=== PATIENT | male | born 1960 | race African-American/Black ===

== ENCOUNTER 2016-08-02 13:30 | Emergency (ER) | payer OTHER ==
[~2016-08-02] VITALS: Ht 180.3 cm; Wt 94.1 kg
[~2016-08-02 13:30] MED LIST: AZIT250T4 PO; LORA10CA PO; PROM5SYR PO; [UNRECOGNIZED DRUG - CODE] PO
[2016-08-02 13:44] VITALS: BP 129/90; PULSE 90; RESP 16; O2SAT 98
--- NOTE | 2016-08-02 14:44 | ED.REPORT ---
HPI-URI / Cough / Cold Date of Service Aug 02, 2016 ED Provider: Jamie Fonseca PA-C 56-year-old male presents with chief complaint of allergies. He complains of runny nose, postnasal drip, itchy, watery eyes, ear pressure, dry cough. Denies fever, chills, malaise, myalgia, abdominal pain, vomiting. He typically treats this with Phenergan/Phenyleferiun and "an Inhaler." He would like a refill of his medications. He does not have a primary care provider. Nursing Notes Stated Complaint: SOB/COUGH Chief Complaint: Respiratory Complaints Nursing Notes Reviewed: Yes Allergies: Coded Allergies: hydrocodone (Verified Allergy, Intermediate, itching and hives, 08/02/16) tramadol (Verified Allergy, Mild, UNKNOWN AT THIS TIME, 08/02/16) Scheduled Loratadine (Claritin) 10 Mg Capsule 10 MG PO DAILY Phenylephrine/Promethazine Syrup (Promethazine Vc Syrup) 118 Ml Syrup 5 ML PO TID Promethazine/Phenylephrine Syr (Promethazine/Phenylephrine Syr) 118 Ml Syrup 5 ML PO QID General Time Seen by MD: 14:24 Chief Complaint Other (allergies) Past Medical History Past Medical History Denies medical problems Past Surgical History jaw fracture at 27 years old , repaired at [facility] in [place] Smoking History Former Smoker, Unknown if Ever Smoker Social History Alcohol Use: Denies alcohol use Drug Use: Denies drug use Occupation lives with a friend in [place], no work or school at this time 02/08/2016 Ambulatory Status Independent Review of Systems Review of Systems Note: Negative unless stated otherwise in history of present illness Physical Exam General: Well appearing, well developed, well nourished, no acute distress. Head: Atraumatic, normocephalic. No mastoid tenderness. Eyes: No scleral icterus or injection. Slight eyelid edema. Mild clear discharge. PERRL. Vision grossly intact. Ears: Pinna and tragus nontender with manipulation. External auditory canal patent, atraumatic and without discharge. Tympanic membrane coker, shiny and translucent without fluid, bulging, retraction or perforation. Hearing grossly intact. Nose: Symmetrical, nares patent without discharge. No frontal or maxillary sinus tenderness. Mouth/pharynx: normal dentition, mucus membranes moist. Tonsils 2+ and symmetrical, uvula midline. Pharynx mildly injected, no cobblestoning or discharge. Voice clear. Neck: No tenderness or lymphadenopathy. Trachea midline. Respiratory: Regular rate and rhythm. Breath sounds present, clear to auscultation and equal bilaterally. No respiratory distress. No increased work of breathing, speaks in complete sentences. Cardiovascular: Regular rate and rhythm, without murmur, gallop or rub. No pedal edema. Skin: Warm and dry. Neurological: Grossly nonfocal. Psychological: Alert and oriented. Speech appropriate, linear and logical. Behavior appropriate. Initial Vital Signs Vital Signs (First) Date Time Temp Pulse Resp B/P Pulse Ox O2 Delivery O2 Flow Rate FiO2 08/02/16 13:44 36.7 90 16 129/90 98 Room Air Initial VS: Vital signs normal Re-Eval/Medical Decision Med Decision/Clinical Course 55-year-old male since the chief complaint of seasonal allergies. Runny eyes, swollen eyes, cough, nasal congestion, postnasal drip. He reports this pattern is familiar to him and requests a refill of his cough syrup. Physical suggest this is likely to be allergic rhinosinusitis, which I find more likely than viral upper respiratory infection, bacterial sinusitis, conjunctivitis. Review of records indicates that he has been prescribed Promethazine/phenylephrine and loratidine in this department the patient insists he has previously been prescribed promethazine/codeine and is quite displeased. Review of records indicate that promethazine/codeine was specifically withheld. Discussed my feeling that codeine would be an inappropriate treatment for his condition and encouraged him to take loratidine to prevent overnight coughing by reducing postnasal drip. Offered alternative cough medications which were declined. Provided referral for primary care follow-up and emergency return precautions. Patient verbalizes understanding and consented to the plan. Discharge & Departure Impression: Primary Impression: Allergic rhinosinusitis Allergic rhinitis trigger: unspecified Allergic rhinitis seasonality: seasonal Qualified Code: J30.2 - Other seasonal allergic rhinitis Disposition: Home Discharge Condition All VS Reviewed: Yes Condition: Stable Additional Instructions: Evaluation for allergies in the emergency department. History and physical suggests that this is recurrent severe seasonal allergies as you suggest. Temperature prescription for cough medication. I will also write a prescription for loratadine 10 mg to be taken once a day. This medication will help you with your itchy/watery eyes as well as your other symptoms. I also gave a referral for a primary care provider. Please contact them to establish care, and follow-up with them if you have any further concerns. Return the emergency Department for new or worsening symptoms including shortness of breath or difficulty breathing. Referrals: [facility] Provider for APC: Doris Elaine MD copies to: [facility] Jamie Fonseca PA-C Aug 02, 2016 14:44
[2016-08-02] MEDS ORDERED: LORA10CA PO (14:47)
[2016-08-02] MEDS ORDERED: [UNRECOGNIZED DRUG - CODE] PO (14:47)
== END 2016-08-02 15:24 | disposition home or self-care (01) ==
LOC: SED 13:30
DX: J30.2 Other seasonal allergic rhinitis (principal); Z87.891 Personal history of nicotine dependence; Z88.5 Allergy status to narcotic agent; Z88.8 Allergy status to other drugs, medicaments and biological substances